=== PATIENT | male | born 1975 | race Caucasian/White ===

== ENCOUNTER → 2020-03-18 15:32 | Outpatient (BNVA) | payer MEDICARE, MEDICAID, SELFPAY | PROVIDERS: Family Provider Nurse Practitioner; PCP Nurse Practitioner; Visit Provider Nurse Practitioner Family | DX: E11.9 Type 2 diabetes mellitus without complications (principal); E55.9 Vitamin D deficiency, unspecified; J44.9 Chronic obstructive pulmonary disease, unspecified; Z79.899 Other long term (current) drug therapy | CPT/HCPCS: 80053; 80061; 81015; 82043; 82306; 82607; 83036; 85025 ==

== ENCOUNTER → 2020-06-22 10:19 | Outpatient (BNVA) | payer MEDICARE, MEDICAID, SELFPAY | PROVIDERS: Family Provider Nurse Practitioner; PCP Nurse Practitioner; Visit Provider Nurse Practitioner Family | DX: E55.9 Vitamin D deficiency, unspecified (principal); M79.7 Fibromyalgia; G89.29 Other chronic pain; M25.561 Pain in right knee; J30.89 Other allergic rhinitis; R53.83 Other fatigue; E11.9 Type 2 diabetes mellitus without complications | CPT/HCPCS: 73562; 80053; 80061; 82306; 82607; 83036; 83721; 84403; 84443; 85025 ==

== ENCOUNTER → 2020-07-01 10:48 | Outpatient (BNVA) | payer MEDICARE, MEDICAID, SELFPAY | PROVIDERS: Family Provider Nurse Practitioner; PCP Nurse Practitioner Family; Visit Provider Nurse Practitioner Family | DX: R53.83 Other fatigue (principal) | CPT/HCPCS: 86376 ==

== ENCOUNTER → 2020-07-07 10:56 | Outpatient (BNVA) | payer MEDICARE, MEDICAID, SELFPAY | PROVIDERS: Family Provider Nurse Practitioner; PCP Nurse Practitioner Family; Referring Provider Nurse Practitioner Family; Visit Provider Specialist | DX: M25.561 Pain in right knee (principal); M25.562 Pain in left knee; Z96.652 Presence of left artificial knee joint | CPT/HCPCS: 73560; 73565 ==

== ENCOUNTER 2020-07-22 06:00 | Outpatient (RCR) | payer MEDICARE, SELFPAY | END 2020-08-09 23:59 | disposition home or self-care (01) | LOC: TPT 06:00 | PROVIDERS: PCP Nurse Practitioner Family; Referring Provider Specialist; Visit Provider Specialist | DX: M25.561 Pain in right knee (principal); M17.9 Osteoarthritis of knee, unspecified | CPT/HCPCS: 97110; 97162 ==

== ENCOUNTER 2020-07-23 11:00 | Outpatient (RCR) | payer MEDICARE, MEDICAID, SELFPAY | END 2020-08-09 23:59 | disposition home or self-care (01) | LOC: PULRHB 11:00 | PROVIDERS: PCP Nurse Practitioner Family; Visit Provider Nurse Practitioner Family | DX: J44.9 Chronic obstructive pulmonary disease, unspecified (principal); R79.89 Other specified abnormal findings of blood chemistry; Z12.5 Encounter for screening for malignant neoplasm of prostate | CPT/HCPCS: 81003; 84403; 94618; G0103 ==

== ENCOUNTER 2020-07-23 11:09 | Outpatient (CLI) | payer MEDICARE, MEDICAID, SELFPAY ==
--- NOTE | 2020-07-23 11:45 | MR_ITS ---
WS: [id number] MRI RIGHT KNEE HISTORY: S83.209A - Unspecified tear of unspecified meniscus, COMPARISON: 07/07/2020 Anterior cruciate ligament: Mild intrasubstance degeneration in the ACL. No definite tears. Posterior cruciate ligament: Intact. Medial collateral ligament: Increased fluid signal on both sides of the MCL. No focal tear within the ligament. Posterior lateral corner structures: Intact. Medial menisci: Intact. Normal signal, size and shape. Lateral meniscus: Intact. Normal signal, size and shape. Extensor mechanism: Distal quadriceps tendon and patellar tendons are intact. Fluid and soft tissue: Small suprapatellar joint effusion. No Bansal's cyst. Osseous and articular structures: Patellofemoral compartment: Mild lateral tilting of the patella. No displacement. Small superficial d efects within the cartilage greatest over the medial patellar facet. No marrow edema. Medial compartment: Mild narrowing of the medial compartment. No marrow edema. Lateral compartment: Small amount of marrow edema within osteochondral lesion in the anterior lateral femoral condyle. Area of abnormality measures 1.3 x 1.6 cm. MR/MR knee RT wo con* [id number] IMPRESSION: 1. Small osteochondral lesion involving the anterior lateral femoral condyle. 2. Small joint effusion. 3. No meniscal tear. 4. Mild MCL sprain.
== END 2020-07-23 11:10 | disposition home or self-care (01) ==
LOC: RADSHAW 11:11
PROVIDERS: PCP Nurse Practitioner Family; Visit Provider Specialist
DX: M25.461 Effusion, right knee (principal); S83.411A Sprain of medial collateral ligament of right knee, initial encounter; X58.XXXA Exposure to other specified factors, initial encounter
CPT/HCPCS: 73721

== ENCOUNTER → 2020-07-27 10:47 | Outpatient (BNVA) | payer MEDICARE, MEDICAID, SELFPAY | PROVIDERS: PCP Nurse Practitioner Family; Visit Provider Nurse Practitioner Family | DX: J44.1 Chronic obstructive pulmonary disease with (acute) exacerbation (principal) | CPT/HCPCS: 71046 ==

== ENCOUNTER 2020-08-10 06:00 | Outpatient (RCR) | payer MEDICARE, MEDICAID, SELFPAY | END 2020-09-08 23:59 | disposition home or self-care (01) | LOC: TPT 06:00 | PROVIDERS: PCP Nurse Practitioner Family; Referring Provider Specialist; Visit Provider Specialist | DX: J44.9 Chronic obstructive pulmonary disease, unspecified (principal) | CPT/HCPCS: 97110 ==

== ENCOUNTER 2021-03-12 06:00 | Outpatient (RCR) | payer MEDICARE, MEDICAID, SELFPAY | END 2021-04-11 23:59 | disposition home or self-care (01) | LOC: PULRHB 06:00 | PROVIDERS: PCP Nurse Practitioner Family; Visit Provider Nurse Practitioner Family | DX: J44.9 Chronic obstructive pulmonary disease, unspecified (principal) | CPT/HCPCS: 94626; G0424 ==

== ENCOUNTER 2021-04-12 06:00 | Outpatient (RCR) | payer MEDICARE, MEDICAID, SELFPAY | END 2021-05-09 23:59 | disposition home or self-care (01) | LOC: PULRHB 06:00 | PROVIDERS: PCP Nurse Practitioner Family; Visit Provider Nurse Practitioner Family | DX: J44.9 Chronic obstructive pulmonary disease, unspecified (principal) | CPT/HCPCS: 80053; 80061; 82043; 82306; 82607; 83036; 84443; 85025; 94626; G0424 ==

== ENCOUNTER → 2021-05-16 12:07 | Outpatient (BNVA) | payer MEDICARE, MEDICAID, SELFPAY | PROVIDERS: PCP Nurse Practitioner Family; Visit Provider Nurse Practitioner Family | DX: J20.9 Acute bronchitis, unspecified (principal); J44.1 Chronic obstructive pulmonary disease with (acute) exacerbation; J44.9 Chronic obstructive pulmonary disease, unspecified; R05.9 Cough, unspecified; E78.5 Hyperlipidemia, unspecified; E11.9 Type 2 diabetes mellitus without complications | CPT/HCPCS: 71046; 80053 ==

== ENCOUNTER → 2021-06-01 14:01 | Outpatient (BNVA) | payer MEDICARE, MEDICAID, SELFPAY | PROVIDERS: PCP Nurse Practitioner Family; Visit Provider Internal Medicine Pulmonary Disease | DX: J20.9 Acute bronchitis, unspecified (principal); J44.9 Chronic obstructive pulmonary disease, unspecified; J45.909 Unspecified asthma, uncomplicated; M54.2 Cervicalgia; G89.29 Other chronic pain; K21.9 Gastro-esophageal reflux disease without esophagitis; M54.9 Dorsalgia, unspecified; M79.7 Fibromyalgia; F17.210 Nicotine dependence, cigarettes, uncomplicated; Z91.012 Allergy to eggs | CPT/HCPCS: 36415; 82785; 86003; 99204 ==

== ENCOUNTER 2021-09-28 12:28 | Outpatient (CLI) | payer MEDICARE, MEDICAID, SELFPAY ==
--- NOTE | 2021-09-28 13:43 | PFTS_ITS ---
Date of Study:09/28/21 Date of Dictation: MECHANICS: Forced vital capacity (FVC) is reduced. Forced expiratory volume in one second (FEV1) is reduced. FEV1/FVC is normal. FLOW VOLUME LOOP: Reduced lateral lung volumes with scooping. LUNG VOLUMES: Total lung capacity (TLC) is normal. Residual volume (RV) is increased. DIFFUSING CAPACITY FOR CARBON MONOXIDE: Normal. INTERPRETATION: The postbronchodilator spirometry is consistent with moderate restriction. There is no significant postbronchodilator response. Lung volumes are consistent with air trapping. Gas exchange (DLCO) is normal. The discrepancy between spirometry and lung volume measurement is consistent with nonspecific ventilatory limitations. MTDD
== END 2021-09-28 12:29 | disposition home or self-care (01) ==
PROVIDERS: PCP Nurse Practitioner Family; Visit Provider Internal Medicine Pulmonary Disease
DX: R05.9 Cough, unspecified (principal)
CPT/HCPCS: 94060; 94618; 94726; 94729; J7614

== ENCOUNTER → 2021-10-19 10:05 | Outpatient (BNVA) | payer MEDICARE, MEDICAID, SELFPAY | PROVIDERS: PCP Nurse Practitioner Family; Visit Provider Internal Medicine Pulmonary Disease | DX: J44.9 Chronic obstructive pulmonary disease, unspecified (principal); M25.641 Stiffness of right hand, not elsewhere classified; M25.642 Stiffness of left hand, not elsewhere classified; J45.909 Unspecified asthma, uncomplicated; B37.0 Candidal stomatitis; R53.81 Other malaise; F17.210 Nicotine dependence, cigarettes, uncomplicated | CPT/HCPCS: 36415; 85651; 86038; 86140; 86200; 86235; 86431; 99214 ==

== ENCOUNTER → 2021-10-24 10:26 | Outpatient (BNVA) | payer MEDICARE, MEDICAID, SELFPAY | PROVIDERS: PCP Nurse Practitioner Family; Visit Provider Nurse Practitioner Family | DX: J06.9 Acute upper respiratory infection, unspecified (principal); J20.9 Acute bronchitis, unspecified; J44.1 Chronic obstructive pulmonary disease with (acute) exacerbation; R05.9 Cough, unspecified; K08.89 Other specified disorders of teeth and supporting structures | CPT/HCPCS: 80053 ==

== ENCOUNTER → 2021-11-09 13:56 | Outpatient (BNVA) | payer MEDICARE, MEDICAID, SELFPAY | PROVIDERS: PCP Nurse Practitioner Family; Visit Provider Nurse Practitioner Family | DX: J06.9 Acute upper respiratory infection, unspecified (principal) | CPT/HCPCS: 71046 ==

== ENCOUNTER 2021-12-01 09:21 | Outpatient (RCR) | payer MEDICARE, MEDICAID, SELFPAY | END 2021-12-09 23:59 | disposition home or self-care (01) | LOC: TPT 09:21 | PROVIDERS: PCP Nurse Practitioner Family; Visit Provider Internal Medicine Pulmonary Disease | DX: R53.81 Other malaise (principal); J44.9 Chronic obstructive pulmonary disease, unspecified; J45.909 Unspecified asthma, uncomplicated | CPT/HCPCS: 97110; 97163 ==

== ENCOUNTER 2021-12-10 06:00 | Outpatient (RCR) | payer MEDICARE, MEDICAID, SELFPAY | END 2022-01-09 23:59 | disposition home or self-care (01) | LOC: TPT 06:00 | PROVIDERS: PCP Nurse Practitioner Family; Visit Provider Internal Medicine Pulmonary Disease | DX: R53.81 Other malaise (principal); J44.9 Chronic obstructive pulmonary disease, unspecified; J45.909 Unspecified asthma, uncomplicated | CPT/HCPCS: 97110 ==

== ENCOUNTER → 2022-01-09 13:02 | Outpatient (BNVA) | payer MEDICARE, MEDICAID, SELFPAY | PROVIDERS: PCP Nurse Practitioner Family; Visit Provider Internal Medicine Pulmonary Disease | DX: J44.9 Chronic obstructive pulmonary disease, unspecified (principal); B37.0 Candidal stomatitis; M25.641 Stiffness of right hand, not elsewhere classified; M25.642 Stiffness of left hand, not elsewhere classified; R76.8 Other specified abnormal immunological findings in serum; F17.210 Nicotine dependence, cigarettes, uncomplicated; F17.220 Nicotine dependence, chewing tobacco, uncomplicated | CPT/HCPCS: 99214 ==

== ENCOUNTER 2022-01-10 06:00 | Outpatient (RCR) | payer MEDICARE, MEDICAID, SELFPAY | END 2022-02-08 23:59 | disposition home or self-care (01) | LOC: TPT 06:00 | PROVIDERS: PCP Nurse Practitioner Family; Visit Provider Internal Medicine Pulmonary Disease | DX: R53.81 Other malaise (principal); J44.9 Chronic obstructive pulmonary disease, unspecified; J45.909 Unspecified asthma, uncomplicated | CPT/HCPCS: 97110 ==

== ENCOUNTER 2022-01-19 08:48 | Outpatient (CLI) | payer MEDICARE, MEDICAID, SELFPAY ==
--- NOTE | 2022-01-19 09:30 | CT_ITS ---
WS: [id number] CT CHEST CT-HIGH RESOLUTION, NONCONTRAST. HISTORY: Interstitial lung disease. Technique: High-resolution chest CT is performed in inspiration, expiration, supine and prone eduardoo nilam. All CT scans at [facility] use at least one of these dose optimization techniques: automated exposure control; mA and/or kV adjustment per patient size (includes targeted exams where dose is mat ched to clinical indication); or iterative reconstruction. DLP: 3310.65 mGy.cm COMPARISON: None. Findings: Lungs are well expanded. No mass or nodule. There is no bronchiectasis or honeycombing. No interstitial thickening. Subsegmental area of atelectasis in the anterior lingula and RIGHT middle lo be. This atelectasis persists on prone imaging with only minimal improvement. Very subtle area of gonzalo e-in-bud airspace disease LEFT lower lobe. There is some very subtle lucencies on the inspiratory rosemary ging in the upper lung may. On the expiratory imaging this lucent areas in the upper and lower lung may, more decreased attenu ation consistent with a mosaic attenuation. There are additional areas which become more dense consis tent with normal excretory collapse. No adenopathy. Heart size is normal. Small hiatal hernia. Hepato megaly and hepatic steatosis. CT/CT chest wo con [id number] Impression: 1. No bronchiectasis or honeycombing. 2. Mosaic attenuation in the upper lower lung may consistent with air cole ing. Typically seen with constrictive bronchiolitis. Consider infection, hypers ensitivity pneumonia and connective tissue disease. 3. No mass or pneumonia identified.
== END 2022-01-19 08:49 | disposition home or self-care (01) ==
PROVIDERS: PCP Nurse Practitioner Family; Visit Provider Internal Medicine Pulmonary Disease
DX: J44.9 Chronic obstructive pulmonary disease, unspecified (principal); J84.9 Interstitial pulmonary disease, unspecified
CPT/HCPCS: 71250

== ENCOUNTER 2022-02-09 06:00 | Outpatient (RCR) | payer MEDICARE, MEDICAID, SELFPAY | END 2022-03-11 23:59 | disposition home or self-care (01) | LOC: TPT 06:00 | PROVIDERS: PCP Nurse Practitioner Family; Visit Provider Internal Medicine Pulmonary Disease | DX: R53.81 Other malaise (principal); J44.9 Chronic obstructive pulmonary disease, unspecified; J45.909 Unspecified asthma, uncomplicated | CPT/HCPCS: 97110; 97164 ==

== ENCOUNTER 2022-03-12 06:00 | Outpatient (RCR) | payer MEDICARE, MEDICAID, SELFPAY | END 2022-04-11 23:59 | disposition home or self-care (01) | LOC: TPT 06:00 | PROVIDERS: PCP Nurse Practitioner Family; Visit Provider Internal Medicine Pulmonary Disease | DX: R53.81 Other malaise (principal); J44.9 Chronic obstructive pulmonary disease, unspecified; J45.909 Unspecified asthma, uncomplicated | CPT/HCPCS: 97110 ==

== ENCOUNTER → 2022-04-03 16:04 | Outpatient (BNVA) | payer MEDICARE, MEDICAID, SELFPAY | PROVIDERS: PCP Nurse Practitioner Family; Visit Provider Nurse Practitioner Family | DX: J06.9 Acute upper respiratory infection, unspecified (principal); J44.1 Chronic obstructive pulmonary disease with (acute) exacerbation; E55.9 Vitamin D deficiency, unspecified; E11.9 Type 2 diabetes mellitus without complications; J30.89 Other allergic rhinitis | CPT/HCPCS: 87400; 87426 ==

== ENCOUNTER → 2022-04-04 08:33 | Outpatient (BNVA) | payer MEDICARE, MEDICAID, SELFPAY | PROVIDERS: PCP Nurse Practitioner Family; Visit Provider Nurse Practitioner Family | DX: E11.9 Type 2 diabetes mellitus without complications (principal); E55.9 Vitamin D deficiency, unspecified; E78.5 Hyperlipidemia, unspecified | CPT/HCPCS: 80053; 80061; 82306; 83036; 84443; 85025 ==

== ENCOUNTER 2022-04-12 06:00 | Outpatient (RCR) | payer MEDICARE, MEDICAID, SELFPAY | END 2022-05-03 23:59 | disposition home or self-care (01) | LOC: TPT 06:00 | PROVIDERS: PCP Nurse Practitioner Family; Visit Provider Internal Medicine Pulmonary Disease | DX: R53.81 Other malaise (principal); J44.9 Chronic obstructive pulmonary disease, unspecified; J45.909 Unspecified asthma, uncomplicated | CPT/HCPCS: 97110 ==

== ENCOUNTER 2022-05-18 10:15 | Outpatient (CLI) | payer MEDICARE, MEDICAID, SELFPAY ==
--- NOTE | 2022-05-18 10:34 | XR_ITS ---
WS: [email or web address] Thoracic spine, 4 views, 05/18/2022 Clinical Data: M54.2 - Cervicalgia Comparison: Thoracic spine, 06/16/2015 Findings: No compression fractures are seen. The disc heights are normal. There are osteophytes of the vertebral bodies T7-T12. The paravertebral regions are normal. XR/XR thoracic spine 3V* [id number] Impression: Osteoarthritis T7-T12.
--- NOTE | 2022-05-18 10:34 | XR_ITS ---
WS: [email or web address] Cervical spine, 3 views, 05/18/2022 Clinical Data: M54.2 - Cervicalgia Comparison: Cervical spine, 06/16/2015. Findings: No compression fractures are seen. The disc heights are normal. There is minimal anterior s purring at C5, C6 and C7. There is no prevertebral soft tissue swelling. The odontoid is unremarkable . The soft tissues of the neck and the lung apices are normal. XR/XR cervical spine 3V* [id number] Impression: Minimal osteoarthritis C5-C7.
== END 2022-05-18 10:16 | disposition home or self-care (01) ==
LOC: RAD 10:19
PROVIDERS: PCP Nurse Practitioner Family; Visit Provider Nurse Practitioner Family
DX: G89.29 Other chronic pain; M47.812 Spondylosis without myelopathy or radiculopathy, cervical region; M47.814 Spondylosis without myelopathy or radiculopathy, thoracic region
CPT/HCPCS: 72040; 72072

== ENCOUNTER → 2022-07-26 11:47 | Outpatient (BNVA) | payer MEDICARE, MEDICAID, SELFPAY | PROVIDERS: PCP Nurse Practitioner Family; Visit Provider Specialist | DX: R09.81 Nasal congestion (principal) | CPT/HCPCS: 80048; 85025 ==

== ENCOUNTER 2022-10-03 07:39 | Outpatient (CLI) | payer MEDICARE, MEDICAID, SELFPAY ==
--- NOTE | 2022-10-03 08:00 | MR_ITS ---
WS: [id number] MRI CERVICAL SPINE NONCONTRAST HISTORY: M54.2 - Cervicalgia COMPARISON: None available. Technique: Multiplanar, multisequence noncontrast imaging of the cervical spine. Mild straightening and reversal of the normal cervical lordosis. Signal within the cervical cord is normal. Visualized posterior fossa is unremarkable. Craniocervical junction, C1 and C2 relationship, odontoid process and soft tissues are normal. C2-C3: Normal. C3-C4: Small central disc protrusion. No stenosis. C4-C5: Mild annular disc bulge with a shallow central disc protrusion. Mild effacement of ventral CSF and encroachment upon the ventral thecal sac. No high-grade stenosis. C5-C6: Mild annular disc bulging with a shallow LEFT paracentral disc osteophyte encroaching upon the LEFT lateral thecal sac and narrowing the LEFT foramen. Mild LEFT foraminal stenosis. C6-C7: Moderate annular disc bulging and mild osteophytic ridging. Mild disc and osteophyte encroachm ent upon the ventral thecal sac and the foramina. Mild central and bilateral foraminal stenosis. C7-T1: Normal. Paraspinal soft tissue are normal. MR/MR cervical spin wo con* [id number] IMPRESSION: 1. LEFT paracentral disc osteophyte at C5-6 causing mild encroachment upon the LEFT lateral thecal sac and LEFT foraminal stenosis. 2. Mild central and bilateral foraminal stenosis at C6-7 due to disc and osteo phyte disease. 3. Very small central disc protrusion at C3-4 and C4-5.
--- NOTE | 2022-10-03 08:04 | XR_ITS ---
WS: [email or web address] Orbits, 3 views. HISTORY: Evaluate for metal within the orbits prior to MRI. No metallic foreign bodies are identified on radiographs. XR/XR eye foreign body [id number] IMPRESSION: No metallic foreign body.
--- NOTE | 2022-10-03 08:45 | MR_ITS ---
WS: [id number] MRI THORACIC SPINE noncontrast. HISTORY: M54.6 - Pain in thoracic spine COMPARISON: None available. TECHNIQUE: Multiplanar sequences are performed in sagittal and axial planes. Small central disc protrusion or osteophyte at C4-5 and C5-C6 with contact or mild contact on the afua tral cord. Posterior thoracic alignment is otherwise unremarkable. Mild anterior wedging of T3 by 10%. No marrow edema. No acute fracture. Signal within the cord is normal. T1-2: Normal. T2-3: Mild osteophytic ridging. No stenosis. T3-4: Mild annular disc bulge and osteophytic ridging. T4-5: Bilateral mild facet joint arthritis and minimal foraminal narrowing. No high-grade stenosis. T5-6: Shallow central disc protrusion. No stenosis. T6-7: Mild foraminal narrowing on the LEFT. T7-8: Mild bilateral foraminal stenosis. T8-9: Mild bilateral foraminal stenosis, LEFT greater than RIGHT. T9-10: Normal. T10-11: Mild facet arthritis. Mild foraminal stenosis. T11-12: Normal. Paravertebral soft tissues are normal. MR/MR thoracic spin wo con* [id number] IMPRESSION: 1. No high-grade central or foraminal stenosis. No cord compression. 2. Chronic T3 10 percent compression fracture. 3. Multilevel areas of mild facet arthritis and foraminal stenoses as above.
--- NOTE | 2022-10-03 09:30 | MR_ITS ---
WS: [email or web address] MRI LUMBAR SPINE NONCONTRAST HISTORY: M54.50 - Low back pain, unspecified, LEFT leg pain. COMPARISON: None available. TECHNIQUE: Sagittal and axial multisequence imaging is submitted. Normal lumbar alignment with no compression fractures or marrow edema. Disc spaces and vertebral body heights are well-preserved. Conus terminates normally at L1. L1-L2: Normal. L2-L3: Normal. L3-L4: Mild annular disc bulging with mild bilateral facet and ligamentum flavum hypertrophy. Very sl ight asymmetric disc bulging to the LEFT. Mild bilateral foraminal stenosis and mild encroachment upo n the subarticular recesses. L4-L5: Mild annular disc bulging. Mild ligamentum flavum and facet arthritis. Disc encroachment and c ontact upon the subarticular recesses and foramina. Correlate for L4 and L5 nerve root symptoms. L5-S1: Mild disc bulging asymmetric to the LEFT. Disc bulging to the LEFT foramen with mild contact o n the exiting LEFT L5 nerve root. Paravertebral soft tissues are negative. MR/MR lumbar spine wo con* [id number] IMPRESSION: 1. No high-grade central or foraminal stenosis. 2. Mild bilateral subarticular recess and foraminal encroachment at L3-4. 3. Mild encroachment into the subarticular recesses and foramen at L4-5. Sligh t contact on both the L4 and L5 nerve roots. 4. Asymmetric disc bulging versus focal LEFT foraminal disc protrusion at L5-S 1. Mild contact on the exiting LEFT L5 nerve root.
== END 2022-10-03 07:40 | disposition home or self-care (01) ==
PROVIDERS: PCP Nurse Practitioner Family; Visit Provider Nurse Practitioner Family
DX: M48.02 Spinal stenosis, cervical region (principal); M25.78 Osteophyte, vertebrae; M50.21 Other cervical disc displacement, high cervical region; Z03.823 Encounter for observation for suspected inserted (injected) foreign body ruled out; M48.54XA Collapsed vertebra, not elsewhere classified, thoracic region, initial encounter for fracture; M47.814 Spondylosis without myelopathy or radiculopathy, thoracic region; M51.37 Other intervertebral disc degeneration, lumbosacral region; M48.061 Spinal stenosis, lumbar region without neurogenic claudication; M54.50 Low back pain, unspecified; G89.29 Other chronic pain
CPT/HCPCS: 70030; 72141; 72146; 72148

== ENCOUNTER → 2022-11-14 13:03 | Outpatient (BNVA) | payer MEDICARE, MEDICAID, SELFPAY | PROVIDERS: PCP Nurse Practitioner Family; Referring Provider Nurse Practitioner Family; Visit Provider Orthopaedic Surgery | DX: M54.2 Cervicalgia (principal); M47.819 Spondylosis without myelopathy or radiculopathy, site unspecified | CPT/HCPCS: 72100; 99204 ==

== ENCOUNTER → 2022-12-27 08:50 | Outpatient (BNVA) | payer MEDICARE, MEDICAID, SELFPAY | PROVIDERS: PCP Nurse Practitioner Family; Visit Provider Anesthesiology Pain Medicine | DX: G89.29 Other chronic pain; M47.814 Spondylosis without myelopathy or radiculopathy, thoracic region; M47.812 Spondylosis without myelopathy or radiculopathy, cervical region | CPT/HCPCS: 99205 ==

== ENCOUNTER → 2023-01-08 08:47 | Outpatient (BNVA) | payer MEDICARE, MEDICAID, SELFPAY | PROVIDERS: PCP Nurse Practitioner Family; Visit Provider Anesthesiology Pain Medicine | DX: M79.7 Fibromyalgia (principal); M47.812 Spondylosis without myelopathy or radiculopathy, cervical region; G89.29 Other chronic pain; M47.814 Spondylosis without myelopathy or radiculopathy, thoracic region | CPT/HCPCS: 20553; 99214; J1030; J3490 ==

== ENCOUNTER → 2023-02-07 09:58 | Outpatient (BNVA) | payer MEDICARE, MEDICAID, SELFPAY | PROVIDERS: PCP Nurse Practitioner Family; Visit Provider Nurse Practitioner Family | DX: E11.9 Type 2 diabetes mellitus without complications (principal); E55.9 Vitamin D deficiency, unspecified; R79.89 Other specified abnormal findings of blood chemistry; M79.7 Fibromyalgia; J44.1 Chronic obstructive pulmonary disease with (acute) exacerbation; E78.5 Hyperlipidemia, unspecified; J30.89 Other allergic rhinitis; M54.41 Lumbago with sciatica, right side; M54.42 Lumbago with sciatica, left side; G89.29 Other chronic pain | CPT/HCPCS: 80053; 80061; 82306; 82607; 83036; 84403; 84443; 85025 ==

== ENCOUNTER → 2023-02-08 10:10 | Outpatient (BNVA) | payer MEDICARE, MEDICAID, SELFPAY | PROVIDERS: PCP Nurse Practitioner Family; Visit Provider Anesthesiology Pain Medicine | DX: G89.29 Other chronic pain; M54.41 Lumbago with sciatica, right side; M54.42 Lumbago with sciatica, left side; M47.814 Spondylosis without myelopathy or radiculopathy, thoracic region; M47.812 Spondylosis without myelopathy or radiculopathy, cervical region | CPT/HCPCS: 99214 ==

== ENCOUNTER → 2023-02-22 13:54 | Outpatient (BNVA) | payer MEDICARE, MEDICAID, SELFPAY | PROVIDERS: PCP Nurse Practitioner Family; Visit Provider Anesthesiology Pain Medicine | DX: M47.812 Spondylosis without myelopathy or radiculopathy, cervical region (principal); G89.29 Other chronic pain | CPT/HCPCS: 64633; 64634; J1030 ==

== ENCOUNTER → 2024-04-24 11:42 | Outpatient (BNVA) | payer MEDICARE, MEDICAID, SELFPAY | PROVIDERS: Family Provider Nurse Practitioner Family; PCP Nurse Practitioner Family; Visit Provider Nurse Practitioner Family | DX: E55.9 Vitamin D deficiency, unspecified (principal); E11.9 Type 2 diabetes mellitus without complications; Z12.5 Encounter for screening for malignant neoplasm of prostate | CPT/HCPCS: 80053; 80061; 82306; 82607; 83036; 84443; 85025; G0103 ==

== ENCOUNTER 2024-04-27 20:51 | Emergency (ER) | payer MEDICARE, MEDICAID, SELFPAY ==
--- NOTE | 2024-04-27 20:52 | XRR_ITS ---
PROCEDURE INFORMATION: Exam: XR Left Wrist Exam date and time: 04/27/2024 9:28 PM Age: 49 years old Clinical indication: Injury or trauma; Lt wrist pain post fall TECHNIQUE: Imaging protocol: Radiologic exam of the left wrist. Views: 3 or more views. COMPARISON: No relevant prior studies available. FINDINGS: Bones/joints: No fracture or dislocation is seen about the left wrist. Osseous structures show no acute abnormality. Scapholunate joint space is without widening. No abnormal soft tissue calcification is seen. Soft tissues: No significant focal soft tissue abnormality. XR/XR wrist LT min 3V* [id number] IMPRESSION: No fracture or acute osseous abnormality.
[2024-04-27 20:55] VITALS: BP 154/97; PULSE 99; RESP 16; TEMP 36.7; O2SAT 95; BMI 36.6
--- NOTE | 2024-04-27 21:28 | XRR_ITS ---
PROCEDURE INFORMATION: Exam: XR Sacrum and Coccyx, 2 or More Views Exam date and time: 04/27/2024 9:53 PM Age: 49 years old Clinical indication: Injury or trauma; Fall; Blunt trauma (contusions or hematomas); Prior surgery; Surgery date: 6+ months; Surgery type: Hernia mesh; Patient slipped on ice and fell directly onto buttocks. C/O coccygeal pain. TECHNIQUE: Imaging protocol: XR of the sacrum and coccyx, 2 or more views. COMPARISON: CR XR lumbar spine 2-3V* [id number] 11/14/2022 1:05 PM FINDINGS: Bones/joints: The sacrum and coccyx appear intact. Sacroiliac joints are unremarkable. Pubic rami are intact. Soft tissues: Incidental hernia repair anchors over the anterior pelvic wall XR/XR sacrum coccyx min 2V [id number] IMPRESSION: No acute findings
--- NOTE | 2024-04-27 21:29 | ED_ITS ---
HPI - Extremity Problem General: Chief complaint: Extremity Injury, Upper Stated complaint: Left Wrist Injury Time Seen by Provider: 04/27/24 20:52 Source: patient Mode of arrival: ambulatory History of Present Illness: 49-year-old male states that he had slip ped and fell he states that he landed on his left wrist and along with his buttock she is complaint left wrist pain and pain over his coccyx he states the most pain is to his left wrist denies hitting his head denies any other injuries. Associated symptoms: Deny chest pain, fever(s) or rash Related Data Previous Rx's ?Medication ?Instructions ?Recorded pregabalin 75 mg capsule (Lyrica) 75 mg PO BID 60 days #120 caps 10/17/22 topiramate 100 mg tablet (Topamax) 50 mg (1/2 x 100 mg ) PO BID #60 01/02/23 tabs atorvastatin 20 mg tablet See Rx Instructions .Route 0 03/28/23 .COMPLEX #30 tabs celecoxib 200 mg capsule See Rx Instructions .Route 0 03/28/23 .COMPLEX #60 caps cyclobenzaprine 10 mg tablet 10 mg PO TID PRN muscle s pasm #60 03/28/23 tabs diazepam 5 mg tablet (Valium) 5 mg PO BID PRN anxiety #20 tabs 03/28/23 levocetirizine 5 mg tablet See Rx Instructions .Route 03/28/23 .COMPLEX #30 tabs montelukast 10 mg tablet See Rx Instructions .Route 0 03/28/23 .COMPLEX #30 tabs pantoprazole 40 mg tablet,delayed 40 mg PO DAILY #30 t abs 03/28/23 release tiotropium bromide 18 mcg capsule 1 cap inhalation ANTWON LY #180 04/27/23 with inhalation device (Spiriva inhalations with HandiHaler) azelastine 137 mcg (0.1 %) nasal See Rx Instructions . Route 05/25/23 spray .COMPLEX #30 mL fluticasone propionate 50 See Rx Instructions .Route 0 05/25/23 mcg/actuation nasal .COMPLEX #16 grams spray,suspension mometasone-formoterol HFA 100 2 puff inhalation BID #1 3 grams 06/29/23 mcg-5 mcg/actuation aerosol inhaler (Dulera) ergocalciferol (vitamin D2) 1,250 1,250 mcg PO .weekly #4 caps 08/09/23 mcg (50,000 unit) capsule Ventolin HFA 90 mcg/actuation See Rx Instructions .Rou te 02/05/24 aerosol inhaler (albuterol sulfate) .COMPLEX #18 grams amoxicillin 875 mg-potassium 1 tab PO BID 10 days #20 tabs 02/18/24 clavulanate 125 mg tablet nystatin 100,000 unit/mL oral 500,000 unit (5 mL) PO T ID 7 days 02/18/24 suspension #150 mL prednisone 20 mg tablet 40 mg (2 x 20 mg) PO DAILY 5 days 02/18/24 #10 tabs Allergies Allergy/AdvReac Type Severity Reaction Status Date / Time Egg Derived Allergy ADR-Fatigue Verified 08/27/23 10:58 d gabapentin Allergy ADR-Vomitin Verified 08/27/23 10:58 g morphine Allergy ADR-Irritab Verified 08/27/23 10:58 le red dye Allergy ADR-Gastrointestinal Verified 08/27/23 10:58 Upset Review of Systems Const: Denies: fever(s), chills, body aches or change in appetite ENMT: Denies: throat pain or dental pain Card: Denies: chest pain Resp: Denies: dyspnea GI: Denies: abdominal pain, nausea, vomiting or diarrhea Musc: Reports: extremity pain; Denies: neck pain or back pain Skin/Breast: Denies: rash Neuro: Denies: headache(s) PFSH ED PFSH: Medical History Allergic rhinitis History of otitis media History of deviated nasal septum Fibromyalgia Vitamin D deficiency COPD (chronic obstructive pulmonary disease) Hyperlipidemia Diverticular disease Chronic pain Surgical History Hx of neck surgery History of colon resection Hx of total knee replacement Family History Brother Diabetes Mother Diabetes Sister Diabetes Other Lung disease Denies family history of Clotting disorder Anesthesia complication Bleeding disorder Stroke Social History Smoking and tobacco/nicotine status: never used tobacco/nicotine Quit status (tobacco/nicotine): has tried quititng Second hand smoke exposure: No Alcohol intake: never Substance/Drug Use: never Lives independently: Yes Housing: House Marital status: service: No Current occupational status: disabled Pets and animals: Yes Pets & animals: dog(s) Current gender identity: Male Special dione needs: No Physical Exam Const: COMMON NORMALS: no acute distress, patient oriented x3 and healthy appearing HENMT: COMMON NORMALS: normocephalic and atraumatic HEAD & SCALP: normocephalic and atraumatic Eye: COMMON NORMALS: Equal, round and reactive pupils present and EOMs intact bilaterally PUPIL: Yes Equal, round and reactive pupils present Neck/C-Spine: COMMON NORMALS: full ROM and supple Chest: COMMONS NORMALS: normal inspection of the chest Resp: COMMON NORMALS: normal respiratory effort Cardio: COMMON NORMALS: regular rate RATE: regular rate Extremity: NARRATIVE EXTREMITY EXAM: Tenderness noted left wrist no obvious deformity. Neuro: COMMON NORMALS: patient oriented x3, moves all extremities and no focal motor deficits Psych: COMMON NORMALS: mental status grossly normal, Normal thought process present and cooperative THOUGHT PROCESS: Normal thought process present Skin: COMMON NORMALS: no rashes or lesions noted and no wounds GENERAL SKIN EXAM: no rashes or lesions noted Course Vital Signs: Vital signs: Vital Signs Temperature 98.1 F 04/27/24 20:55 Pulse Rate 99 04/27/24 20:55 Respiratory Rate 16 04/27/24 20:55 Blood Pressure 154/97 04/27/24 20:55 Pulse Oximetry 95 04/27/24 20:55 Oxygen Delivery Me thod Room Air 04/27/24 20:55 MDM - Extremity (Nontraumatic) Medical Decision Making Patient presents here with a wrist sprain from a fall x-ray shows no fracture patient stable for discharge follow-up PCP return if worsening. Medical Records I reviewed the patient's medical records. Lab Data Radiology Impressions Wrist X-Ray 04/27/24 20:52 IMPRESSION: No fracture or acute osseous abnormality. All radiology interpretation(s) finalized by discharge Discharge Plan Discharge Patient Disposition: Home Clinical Impression: Sprain and strain of wrist, Fall Condition: Stable Prescriptions: No Action ergocalciferol (vitamin D2) 1,250 mcg (50,000 unit) capsule 1,250 mcg PO .weekly Qty: 4 3RF amoxicillin-pot clavulanate 875-125 mg tablet 1 tab PO BID 10 Days Qty: 20 0RF prednisone 20 mg tablet 40 mg PO DAILY 5 Days Qty: 10 0RF nystatin 100,000 unit/mL suspension 500,000 unit PO TID 7 Days Qty: 150 0RF pregabalin [Lyrica] 75 mg capsule 75 mg PO BID 60 Days Qty: 120 2RF diazepam [Valium] 5 mg tablet 5 mg PO BID PRN (Reason: anxiety) Qty: 20 0RF atorvastatin 20 mg tablet See Rx Instructions .ROUTE .COMPLEX Qty: 30 5RF Dose Instruction: Take 1 tablet by mouth once daily Rx Instructions: Take 1 tablet by mouth once daily celecoxib 200 mg capsule See Rx Instructions .ROUTE .COMPLEX Qty: 60 5RF Dose Instruction: Take 1 capsule by mouth twice daily Rx Instructions: Take 1 capsule by mouth twice daily cyclobenzaprine 10 mg tablet 10 mg PO TID PRN (Reason: muscle spasm) Qty: 60 1RF levocetirizine 5 mg tablet See Rx Instructions .ROUTE .COMPLEX Qty: 30 5RF Dose Instruction: TAKE 1 TABLET BY MOUTH ONCE DAILY NEEDED FOR ALLERGIES Rx Instructions: TAKE 1 TABLET BY MOUTH ONCE DAILY NEEDED FOR ALLERGIES montelukast 10 mg tablet See Rx Instructions .ROUTE .COMPLEX Qty: 30 5RF Dose Instruction: Take 1 tablet by mouth once daily Rx Instructions: Take 1 tablet by mouth once daily pantoprazole 40 mg tablet,delayed release (DR/EC) 40 mg PO DAILY Qty: 30 5RF topiramate [Topamax] 100 mg tablet 50 mg PO BID Qty: 60 0RF Spiriva with HandiHaler 18 mcg capsule, w/inhalation device 1 cap inhalation DAILY Qty: 180 1RF Rx Instructions: puncture 1 cap using device; one dose = 2 inhalations azelastine 137 mcg (0.1 %) aerosol,spray See Rx Instructions .ROUTE .COMPLEX Qty: 30 5RF Dose Instruction: Use 1 spray(s) in each nostril twice daily Rx Instructions: Use 1 spray(s) in each nostril twice daily fluticasone propionate 50 mcg/actuation spray,suspension See Rx Instructions .ROUTE .COMPLEX Qty: 16 5RF Dose Instruction: USE 1 SPRAY(S) IN EACH NOSTRIL EVERY 12 HOURS Rx Instructions: USE 1 SPRAY(S) IN EACH NOSTRIL EVERY 12 HOURS Dulera 100-5 mcg/actuation HFA aerosol inhaler 2 puff inhalation BID Qty: 13 2RF albuterol sulfate [Ventolin HFA] 90 mcg/actuation HFA aerosol inhaler See Rx Instructions .ROUTE .COMPLEX Qty: 18 0RF Dose Instruction: INHALE 2 PUFFS BY MOUTH EVERY 6 HOURS NEEDED FOR SHORTNESS OF BREATH FOR WHEEZING Rx Instructions: INHALE 2 PUFFS BY MOUTH EVERY 6 HOURS NEEDED FOR SHORTNESS OF BREATH FOR WHEEZING Discharge Orders: Discharge ED (Routine); Ordered 04/27/24 Ordered By: Kary Zhang Referrals: Brigid Bui FNP [Primary Care Provider] - 4-7 days Discharge Diet: Advance as tolerated Discharge Activity: Resume usual activity Patient Instructions: Wrist Sprain (ED) Print Language: Micronesian Coding Level of Care Code ED Risk Control Representative for Dinh Raya
[2024-04-27] MEDS: HYDROcodone-acetaminophen 5-325 mg Tablet 1 TAB PO (21:36)
--- NOTE | 2024-04-27 22:42 | PC.NURSE ---
Pt sent home with 1tab of Hydrocodone 7.5/[address] Zhang's order.
[2024-04-27 22:54] VITALS: BP 150/89; PULSE 88; O2SAT 96
== END 2024-04-27 22:58 | disposition home or self-care (01) ==
PROVIDERS: Emergency Provider Emergency Medicine; PCP Nurse Practitioner Family
DX: S66.912A Strain of unspecified muscle, fascia and tendon at wrist and hand level, left hand, initial encounter (principal); E78.5 Hyperlipidemia, unspecified; J44.9 Chronic obstructive pulmonary disease, unspecified; W01.0XXA Fall on same level from slipping, tripping and stumbling without subsequent striking against object, initial encounter; M53.3 Sacrococcygeal disorders, not elsewhere classified; S63.502A Unspecified sprain of left wrist, initial encounter
CPT/HCPCS: 72220; 73110; 99284

== ENCOUNTER 2025-02-27 13:02 | Emergency (ER) | payer MEDICARE, MEDICAID, SELFPAY ==
[2025-02-27 13:26] VITALS: BP 148/119; PULSE 110; RESP 18; TEMP 36.6; O2SAT 96
--- NOTE | 2025-02-27 13:46 | XR_ITS ---
WS: [id number] Left knee, 3 views, 02/27/2025 Clinical Data: injury/swelling Comparison: Both knees, 07/07/2020, Findings: The arthroplasty remains in the same position. No loosening or periprosthetic fractures are seen. There is suprapatellar bursal swelling. There is an old healed fracture of the proximal left tibia. XR/XR knee LT 3V* [id number] Impression: 1. Soft tissue suprapatellar swelling. 2. Stable left knee arthroplasty.
--- NOTE | 2025-02-27 13:47 | ED_ITS ---
HPI - Extremity Injury (Lower) General: Chief Complaint: Extremity Injury, Lower Stated Complaint: lt knee Time Seen by Provider: 02/27/25 13:36 Source: patient Mode of arrival: ambulatory Limitations: no limitations History of Present Illness: Patient is a 49-year-old male who presents to ED today with a complaint of left knee pain and swelling. He states he has had previous surgery on that knee se veral years ago by sports medicine near [place]. He states he has not had issues since the surgery. He states he was walking yesterday when he felt like he tweaked the knee and has since noticed swelling and pain. He has not had any direct injury or falls. He has no other injuries or complaints at this time. MD complaint: knee injury Onset (ago): day(s) (yesterday while walking) Injury: Left: knee Place: home Severity: moderate Relieving factors: immobilization Exacerbating factors: weight bearing, movement and palpation Context: walking Associated symptoms: Reports no associated symptoms Other symptoms: none Related Data Previous Rx's ?Medication ?Instructions ?Recorded tiotropium bromide 18 mcg capsule 1 cap inhalation ANTWON LY #180 04/28/24 with inhalation device (Spiriva inhalations with HandiHaler) magnesium 200 mg tablet 200 mg PO DAILY #30 tabs pregabalin 75 mg capsule (Lyrica) 75 mg PO BID 30 days #60 caps 05/05/24 syringe with needle 3 mL 23 x 1 #800 ea 05/26/24 (Carepoint Luer Lock Syringe with needle) metformin 500 mg tablet See Rx Instructions .Route 0 07/24/24 .COMPLEX #180 tabs cyclobenzaprine 10 mg tablet See Rx Instructions .Rout e 08/11/24 .COMPLEX #60 tabs doxycycline hyclate 100 mg tablet 100 mg PO BID 7 days #14 tabs 09/25/24 mometasone-formoterol HFA 100 2 puff inhalation BID #1 3 grams 09/25/24 mcg-5 mcg/actuation aerosol inhaler (Dulera) amoxicillin 875 mg-potassium 1 tab PO BID #20 tabs clavulanate 125 mg tablet nystatin 100,000 unit/mL oral 500,000 unit (5 mL) PO T ID 7 days 10/06/24 suspension #150 mL prednisone 20 mg tablet 20 mg PO BID #5 tabs 5 cyanocobalamin (vitamin B-12) See Rx Instructions .Rou te 10/07/24 1,000 mcg/mL injection solution .COMPLEX #1 mL atorvastatin 20 mg tablet See Rx Instructions .Route 0 10/22/24 .COMPLEX #30 tabs celecoxib 200 mg capsule See Rx Instructions .Route 0 10/22/24 .COMPLEX #60 caps fluticasone propionate 50 See Rx Instructions .Route 0 10/22/24 mcg/actuation nasal .COMPLEX #16 grams spray,suspension levocetirizine 5 mg tablet See Rx Instructions .Route 10/22/24 .COMPLEX #30 tabs montelukast 10 mg tablet See Rx Instructions .Route 0 10/22/24 .COMPLEX #30 tabs pantoprazole 40 mg tablet,delayed See Rx Instructions .Route 10/22/24 release .COMPLEX #30 tabs ergocalciferol (vitamin D2) 1,250 See Rx Instructions .Route 12/25/24 mcg (50,000 unit) capsule .COMPLEX #4 caps Ventolin HFA 90 mcg/actuation See Rx Instructions .Rou te 01/23/25 aerosol inhaler (albuterol sulfate) .COMPLEX #18 grams azelastine 137 mcg (0.1 %) nasal See Rx Instructions . Route 01/23/25 spray .COMPLEX #90 mL Allergies Allergy/AdvReac Type Severity Reaction Status Date / Time Egg Derived Allergy ADR-Fatigue Verified 10/06/24 10:36 d gabapentin Allergy ADR-Vomitin Verified 10/06/24 10:36 g morphine Allergy ADR-Irritab Verified 10/06/24 10:36 le red dye Allergy ADR-Gastrointestinal Verified 10/06/24 10:36 Upset Review of Systems Const: Denies: fever(s) Card: Denies: chest pain Resp: Denies: dyspnea Musc: Reports: joint pain (L knee) and joint swelling (L knee); Denies: neck pain, back pain, extremity pain or extremity swelling Skin/Breast: Denies: rash Neuro: Reports: difficulty walking (secondary to L knee pain); Denies: numbness in extremities, weakness in extremities or sensory changes PFSH ED PFSH: Medical History Allergic rhinitis History of otitis media History of deviated nasal septum Fibromyalgia Vitamin D deficiency COPD (chronic obstructive pulmonary disease) Hyperlipidemia Diverticular disease Chronic pain Surgical History Hx of neck surgery History of colon resection Hx of total knee replacement Family History Brother Diabetes Mother Diabetes Sister Diabetes Other Lung disease Denies family history of Clotting disorder Anesthesia complication Bleeding disorder Stroke Social History Smoking and tobacco/nicotine status: current every day tobacco/nicotine user cigarettes Packs smoked per day: 0.2 Years cigarettes smoked: 30 Quit status (tobacco/nicotine): has tried quititng Second hand smoke exposure: No Alcohol intake: never Substance/Drug Use: never Lives independently: Yes Housing: House Marital status: service: No Current occupational status: disabled Pets and animals: Yes Pets & animals: dog(s) Current gender identity: Male Special dione needs: No Physical Exam Const: COMMON NORMALS: no acute distress, patient oriented x3, no limitations, alert and well nourished GENERAL APPEARANCE: cooperative NUTRITIONAL APPEARANCE: obese ORIENTATION/CONSCIOUSNESS: Yes awake, Yes oriented to person, Yes oriented to place and Yes oriented to time Resp: COMMON NORMALS: normal respiratory effort and clear to auscultation bilaterally AUSCULTATION: clear to auscultation bilaterally Cardio: COMMON NORMALS: regular rate and regular rhythm RATE: regular rate RHYTHM: regular rhythm Extremity: COMMON NORMALS: capillary refill normal, no clubbing, cyanosis or edema, no calf tenderness and no pedal edema GENERAL: Yes normal exam except as noted LEFT LOWER EXTREMITY: Yes knee joint (anterior knee effusion) Left knee: Yes inspection (no erythema/warmth), Yes palpation (TTP throughout knee joint), Yes ROM (limited due to pain/edema), Yes neurovascular exam (normal) and Yes special tests (no obvious joint laxity) Neuro: COMMON NORMALS: patient oriented x3, moves all extremities, no focal motor deficits and no sensory deficits noted SENSORIUM/ORIENTATION: Yes alert, Yes oriented to person, Yes oriented to place and Yes oriented to time Course Vital Signs: Vital signs: Vital Signs Temperature 98 F 02/27/25 13:26 Pulse Rate 110 H 02/27/25 13:26 Respiratory Rate 18 02/27/25 13:26 Blood Pressure 148/119 02/27/25 13:26 Pulse Oximetry 96 02/27/25 13:26 Oxygen Delivery Me thod Room Air 02/27/25 13:26 MDM - Extremity Injury (Lower) Medical Decision Making XR of the knee overall unremarkable. Stable left knee arthroplasty. He is requesting HAYLEY wrap/knee immobilizer to help with discomfort. He has crutches. He plans on following up with his sports medicine provider in [place]. Lab Data Radiology Impressions Knee X-Ray 02/27/25 13:46 Impression: 1. Soft tissue suprapatellar swelling. 2. Stable left knee arthroplasty. All radiology interpretation(s) finalized by discharge Discharge Plan Discharge Patient Disposition: Home Clinical Impression: Injury of knee, left Qualifiers: Encounter type: initial encounter Qualified Code(s): S89.92XA - Unspecified injury of left lower leg, initial encounter Condition: Stable Prescriptions: No Action magnesium 200 mg tablet 200 mg PO DAILY Qty: 30 2RF pregabalin [Lyrica] 75 mg capsule 75 mg PO BID 30 Days Qty: 60 2RF Dulera 100-5 mcg/actuation HFA aerosol inhaler 2 puff inhalation BID Qty: 13 2RF doxycycline hyclate 100 mg tablet 100 mg PO BID 7 Days Qty: 14 0RF prednisone 20 mg tablet 20 mg PO BID Qty: 5 0RF amoxicillin-pot clavulanate 875-125 mg tablet 1 tab PO BID Qty: 20 0RF nystatin 100,000 unit/mL suspension 500,000 unit PO TID 7 Days Qty: 150 0RF Rx Instructions: banana flavored Spiriva with HandiHaler 18 mcg capsule, w/inhalation device 1 cap inhalation DAILY Qty: 180 1RF Rx Instructions: puncture 1 cap using device; one dose = 2 inhalations (DME) syringe with needle [[employer]point Luer Lock Syr-needle] 3 mL 23 x 1 syringe See Rx Instructions .Route Qty: 800 0RF Rx Instructions: USE ONE NEEDLE WITH B12 INJ IM metformin 500 mg tablet See Rx Instructions .ROUTE .COMPLEX Qty: 180 0RF Dose Instruction: TAKE 1 TABLET BY MOUTH TWICE DAILY WITH MEALS Rx Instructions: TAKE 1 TABLET BY MOUTH TWICE DAILY WITH MEALS cyclobenzaprine 10 mg tablet See Rx Instructions .ROUTE .COMPLEX Qty: 60 0RF Dose Instruction: Take 1 tablet by mouth three times daily as needed for muscle spasm Rx Instructions: Take 1 tablet by mouth three times daily as needed for muscle spasm cyanocobalamin (vitamin B-12) 1,000 mcg/mL solution See Rx Instructions .ROUTE .COMPLEX Qty: 1 0RF Dose Instruction: INJECT 1 ML (CC) ONCE EVERY MONTH Rx Instructions: INJECT 1 ML (CC) ONCE EVERY MONTH atorvastatin 20 mg tablet See Rx Instructions .ROUTE .COMPLEX Qty: 30 0RF Dose Instruction: Take 1 tablet by mouth once daily Rx Instructions: Take 1 tablet by mouth once daily fluticasone propionate 50 mcg/actuation spray,suspension See Rx Instructions .ROUTE .COMPLEX Qty: 16 0RF Dose Instruction: USE 1 SPRAY(S) IN EACH NOSTRIL EVERY 12 HOURS Rx Instructions: USE 1 SPRAY(S) IN EACH NOSTRIL EVERY 12 HOURS montelukast 10 mg tablet See Rx Instructions .ROUTE .COMPLEX Qty: 30 0RF Dose Instruction: Take 1 tablet by mouth once daily Rx Instructions: Take 1 tablet by mouth once daily celecoxib 200 mg capsule See Rx Instructions .ROUTE .COMPLEX Qty: 60 0RF Dose Instruction: Take 1 capsule by mouth twice daily Rx Instructions: Take 1 capsule by mouth twice daily pantoprazole 40 mg tablet,delayed release (DR/EC) See Rx Instructions .ROUTE .COMPLEX Qty: 30 0RF Dose Instruction: Take 1 tablet by mouth once daily Rx Instructions: Take 1 tablet by mouth once daily levocetirizine 5 mg tablet See Rx Instructions .ROUTE .COMPLEX Qty: 30 0RF Dose Instruction: TAKE 1 TABLET BY MOUTH ONCE DAILY NEEDED FOR ALLERGIES Rx Instructions: TAKE 1 TABLET BY MOUTH ONCE DAILY NEEDED FOR ALLERGIES ergocalciferol (vitamin D2) 1,250 mcg (50,000 unit) capsule See Rx Instructions .ROUTE .COMPLEX Qty: 4 0RF Dose Instruction: Take 1 capsule by mouth once a week Rx Instructions: Take 1 capsule by mouth once a week azelastine 137 mcg (0.1 %) spray,non-aerosol See Rx Instructions .ROUTE .COMPLEX Qty: 90 0RF Dose Instruction: Use 1 spray(s) in each nostril twice daily Rx Instructions: Use 1 spray(s) in each nostril twice daily albuterol sulfate [Ventolin HFA] 90 mcg/actuation HFA aerosol inhaler See Rx Instructions .ROUTE .COMPLEX Qty: 18 0RF Dose Instruction: INHALE 2 PUFFS BY MOUTH EVERY 6 HOURS NEEDED FOR SHORTNESS OF BREATH OR WHEEZING Rx Instructions: INHALE 2 PUFFS BY MOUTH EVERY 6 HOURS NEEDED FOR SHORTNESS OF BREATH OR WHEEZING Discharge Orders: Discharge ED (Routine); Ordered 02/27/25 Ordered By: Kelsy Pitts Referrals: Brigid Bui FNP [Primary Care Provider, Family Practice] Patient Instructions: Patient Portal & Stephan Instructions Activity Restrictions/Additional Instructions: As we discussed, plan will be for you to follow-up with your orthopedic/sports medicine provider in [place]. We discussed icing, elevating, and wearing compression device to the knee joint to help with swelling. You may also take [id number] anti-inflammatory such as ibuprofen or naproxen. You may follow-up with your primary care provider in the meantime until you see your specialist. 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
== END 2025-02-27 14:50 | disposition home or self-care (01) ==
PROVIDERS: Emergency Provider Physician Assistant; PCP Nurse Practitioner Family
DX: S89.92XA Unspecified injury of left lower leg, initial encounter (principal); Z79.84 Long term (current) use of oral hypoglycemic drugs; F17.210 Nicotine dependence, cigarettes, uncomplicated; J44.9 Chronic obstructive pulmonary disease, unspecified; E78.5 Hyperlipidemia, unspecified; X58.XXXA Exposure to other specified factors, initial encounter
CPT/HCPCS: 73562; 99283